=== PATIENT | male | born 1995 | race African-American/Black ===

== ENCOUNTER 2017-09-19 19:59 | Emergency (ER) | payer OTHER ==
--- NOTE | 2017-09-19 20:25 | ER ---
Nurse's Notes [facility] Name: Lavelle Spear Age: 22 yrs Sex: Male : 1995 Arrival Date: 09/19/2017 Time: 20:00 Bed 4 Private MD: Diagnosis: Dislocation of other parts of right shoulder girdle-reduced Presentation: 09/19 20:01 Presenting complaint: Patient states: I WAS DOING PULLUPS ON THE GATE AND MY ARM rv TWISTED WHEN I WAS JUMPING DOWN. Transition of care: patient was not received from another setting of care. Onset of symptoms was September 19, 2017 at 18:00. Risk Assessment: Do you want to hurt yourself or someone else? Patient reports no desire to harm self or others. Initial Sepsis Screen: Does the patient meet any 2 criteria? No. Patient's initial sepsis screen is negative. Does the patient have a suspected source of infection? No. Patient's initial sepsis screen is negative. Care prior to arrival: None. 20:01 Method Of Arrival: Law Enforcement: [place] [employer] rv 20:01 Acuity: ADONIS 3 rv Triage Assessment: 20:03 General: Appears in no apparent distress. uncomfortable, slender, Behavior is calm, rv cooperative, appropriate for age. Pain: Complains of pain in anterior aspect of right shoulder. EENT: No deficits noted. Neuro: Level of Consciousness is awake, alert, obeys commands, Oriented to person, place, time, situation, Appropriate for age. Cardiovascular: No deficits noted. Respiratory: Airway is patent Respiratory effort is even, unlabored, Respiratory pattern is regular, symmetrical. GI: No signs and/or symptoms were reported involving the gastrointestinal system. : No signs and/or symptoms were reported regarding the genitourinary system. Derm: No deficits noted. Musculoskeletal: Bony deformity noted of anterior aspect of right shoulder. Injury Description: Deformity sustained to anterior aspect of right shoulder. Historical: - Allergies: 20:03 No Known Allergies; rv - Home Meds: 20:03 None [Active]; rv - PMHx: 20:03 None; rv - Immunization history:: Adult Immunizations up to date. - Social history:: Smoking status: Patient/guardian denies using tobacco. - Ebola Screening: : Patient negative for fever greater than or equal to 101.5 degrees Fahrenheit, and additional compatible Ebola Virus Disease symptoms Patient denies exposure to infectious person Patient denies travel to an Ebola-affected area in the 21 days before illness onset No symptoms or risks identified at this time. - Family history:: not pertinent. Screenin:06 Abuse screen: Denies threats or abuse. Denies injuries from another. Nutritional rv screening: No deficits noted. Tuberculosis screening: No symptoms or risk factors identified. Fall Risk None identified. Assessment: 20:06 General: SEE TRIAGE NOTE. 22YO BM [facility] INMATE P/W SPONTANEOUS R SHOULDER DEFORMITY WHILE rv WORKING OUT. 20:44 Reassessment: REDUCTION COMPLETED WITHOUT INCIDENT, PT REMAINS NEUROVASCULAR INTACT. bp POST-REDUCTION XRAY PENDING. 21:13 Reassessment: PT D/C IN CUSTODY OF [employer] OFFICERS, DX WITH R SHOULDER DISLOCATION. bp Vital Signs: 20:03 BP 150 / 91; Pulse 63; Resp 16; Temp 98; Pulse Ox 99% ; Weight 72.57 kg; rv 21:14 BP 138 / 89; Pulse 77; Resp 16; Pulse Ox 100% ; bp ED Course: 20:00 Patient arrived in ED. rv 20:01 Ronald Tompkins MD is Attending Physician. katie 20:02 Triage completed. rv 20:03 Arm band placed on. rv 20:06 Patient has correct armband on for positive identification. Bed in low position. Call rv light in reach. Side rails up X2. Adult w/ patient. 20:25 Alejandro Sam MD is Referral Physician. katie 20:30 Assist provider with reduction of right shoulder using traction, Performed by Ronald Tompkins MD Immobilized with sling, Patient tolerated well. 20:42 Chandana Reyes, ARLENE is Primary Nurse. bp 20:43 Sling applied to right arm. bp 20:44 Patient did not have IV access during this emergency room visit. bp 21:11 X-ray completed. Portable x-ray completed in exam room. Patient tolerated procedure la2 well. 21:12 Shoulder Right (2 View) XRAY In Process Unspecified. EDMS Administered Medications: 20:42 Drug: Motrin 600 mg Route: PO; bp 21:18 Follow up: Response: Pain is decreased bp 20:43 Drug: [place] 10 mg-325 mg 1 tabs Route: PO; bp 21:18 Follow up: Response: Pain is decreased bp Outcome: 20:25 Discharge ordered by . katie 21:17 Discharged to Law Enforcement bp 21:17 Condition: stable 21:17 Discharge instructions given to patient, police, Instructed on discharge instructions, follow up and referral plans. medication usage, Demonstrated understanding of instructions, follow-up care, medications, Prescriptions given X 2. 21:19 Patient left the ED. bp Signatures: Dispatcher [employer] EDMS Ronald Tompkins MD MD cha Ardoin, Leslie la2 Chandana Reyes, RN RN bp Arpan Nichols RN RN rv
--- NOTE | 2017-09-19 20:26 | EDPHYS ---
Physician Documentation [facility] Name: Lavelle Spear Age: 22 yrs Sex: Male : 1995 Arrival Date: 09/19/2017 Time: 20:00 Bed 4 Private MD: ED Physician Ronald Tompkins HPI: 09/19 20:13 This 22 yrs old Black Male presents to ER via Law Enforcement with complaints of katie Shoulder Injury. 20:13 The patient or guardian complains of decreased range of motion, deformity, an injury. katie right shoulder. Context: The problem was sustained at home. Onset: The symptoms/episode began/occurred just prior to arrival. Modifying factors: the symptoms are alleviated by remaining still, shoulder immobilizer, The symptoms are aggravated by lifting weight, movement, rotation of arm. Associated signs and symptoms: The patient has no apparent associated signs or symptoms. Severity of symptoms: At their worst the symptoms were moderate, in the emergency department the symptoms are unchanged. Treatment prior to arrival includes: no previous treatment. The patient has not experienced similar symptoms in the past. Historical: - Allergies: 20:03 No Known Allergies; rv - Home Meds: 20:03 None [Active]; rv - PMHx: 20:03 None; rv - Immunization history:: Adult Immunizations up to date. - Social history:: Smoking status: Patient/guardian denies using tobacco. - Ebola Screening: : Patient negative for fever greater than or equal to 101.5 degrees Fahrenheit, and additional compatible Ebola Virus Disease symptoms Patient denies exposure to infectious person Patient denies travel to an Ebola-affected area in the 21 days before illness onset No symptoms or risks identified at this time. - Family history:: not pertinent. ROS: 20:13 Constitutional: Negative for fever, chills, and weight loss, Eyes: Negative for injury, katie pain, redness, and discharge, ENT: Negative for injury, pain, and discharge, Neck: Negative for injury, pain, and swelling, Cardiovascular: Negative for chest pain, palpitations, and edema, Respiratory: Negative for shortness of breath, cough, wheezing, and pleuritic chest pain, Abdomen/GI: Negative for abdominal pain, nausea, vomiting, diarrhea, and constipation, Back: Negative for injury and pain, : Negative for injury, bleeding, discharge, and swelling, Skin: Negative for injury, rash, and discoloration, Neuro: Negative for headache, weakness, numbness, tingling, and seizure, Psych: Negative for depression, anxiety, suicide ideation, homicidal ideation, and hallucinations, Allergy/Immunology: Negative for hives, rash, and allergies, Endocrine: Negative for neck swelling, polydipsia, polyuria, polyphagia, and marked weight changes, Hematologic/Lymphatic: Negative for swollen nodes, abnormal bleeding, and unusual bruising. 20:13 MS/extremity: Positive for injury or acute deformity, decreased range of motion, pain, tenderness, of the right shoulder. Exam: 20:13 Constitutional: This is a well developed, well nourished patient who is awake, alert, katie and in no acute distress. Head/Face: Normocephalic, atraumatic. Eyes: Pupils equal round and reactive to light, extra-ocular motions intact. Lids and lashes normal. Conjunctiva and sclera are non-icteric and not injected. Cornea within normal limits. Periorbital areas with no swelling, redness, or edema. ENT: Nares patent. No nasal discharge, no septal abnormalities noted. Tympanic membranes are normal and external auditory canals are clear. Oropharynx with no redness, swelling, or masses, exudates, or evidence of obstruction, uvula midline. Mucous membranes moist. Neck: Trachea midline, no thyromegaly or masses palpated, and no cervical lymphadenopathy. Supple, full range of motion without nuchal rigidity, or vertebral point tenderness. No Meningismus. Chest/axilla: Normal chest wall appearance and motion. Nontender with no deformity. No lesions are appreciated. Cardiovascular: Regular rate and rhythm with a normal S1 and S2. No gallops, murmurs, or rubs. Normal PMI, no JVD. No pulse deficits. Respiratory: Lungs have equal breath sounds bilaterally, clear to auscultation and percussion. No rales, rhonchi or wheezes noted. No increased work of breathing, no retractions or nasal flaring. Abdomen/GI: Soft, non-tender, with normal bowel sounds. No distension or tympany. No guarding or rebound. No evidence of tenderness throughout. Back: No spinal tenderness. No costovertebral tenderness. Full range of motion. Male : Normal genitalia with no discharge or lesions. Skin: Warm, dry with normal turgor. Normal color with no rashes, no lesions, and no evidence of cellulitis. Neuro: Awake and alert, GCS 15, oriented to person, place, time, and situation. Cranial nerves II-XII grossly intact. Motor strength 5/5 in all extremities. Sensory grossly intact. Cerebellar exam normal. Normal gait. Psych: Awake, alert, with orientation to person, place and time. Behavior, mood, and affect are within normal limits. 20:13 Musculoskeletal/extremity: Extremities: grossly normal except: noted in the anterior aspect of right shoulder and posterior aspect of right shoulder: decreased ROM, ROM: limited active range of motion due to pain, limited passive range of motion due to pain, Circulation is intact in all extremities. Sensation intact. Compartment Syndrome exam of affected extremity: is normal. DVT Exam: no pain, no swelling, no tenderness, negative Homans' sign noted on exam, no appreciated bluish discoloration, no erythema, no increased warmth. Vital Signs: 20:03 BP 150 / 91; Pulse 63; Resp 16; Temp 98; Pulse Ox 99% ; Weight 72.57 kg; rv 21:14 BP 138 / 89; Pulse 77; Resp 16; Pulse Ox 100% ; bp Procedures: 20:20 Reduction: of the right shoulder, using traction, manipulation, Immobilized with sling, [facility] Patient tolerated well. Post reduction film - reveals normal alignment. MDM: 20:01 Patient medically screened. [facility] 20:16 Data reviewed: vital signs, nurses notes, radiologic studies, plain films. [facility] 09/19 20:15 Order name: Shoulder Right (2 View) XRAY [facility] 09/19 20:16 Order name: Sling; Complete Time: 20:35 [facility] 09/19 20:16 Order name: Ice pack; Complete Time: 20:35 [facility] Administered Medications: 20:42 Drug: Motrin 600 mg Route: PO; bp 21:18 Follow up: Response: Pain is decreased bp 20:43 Drug: [place] 10 mg-325 mg 1 tabs Route: PO; bp 21:18 Follow up: Response: Pain is decreased bp Disposition: 09/19/17 20:25 Discharged to Home. Impression: Dislocation of other parts of right shoulder girdle - reduced. - Condition is Stable. - Discharge Instructions: Shoulder Dislocation, Shoulder Immobilizer, Shoulder Pain, Shoulder Dislocation, [id number]. - Prescriptions for Ibuprofen 600 mg Oral Tablet - take 1 tablet by ORAL route every 6 hours As needed take with food; 20 tablet. Tylenol- Codeine #3 300-30 mg Oral Tablet - take 2 tablet by ORAL route every 6 hours As needed; 30 tablet. - Medication Reconciliation Form, Thank You Letter, Antibiotic Education, Prescription Opioid Use form. - Follow up: Private Physician; When: 2 - 3 days; Reason: Recheck today's complaints, Continuance of care, Re-evaluation by your physician. Follow up: Dr. Alejandro Sam; When: 2 - 3 days; Reason: Recheck today's complaints, Re-evaluation by your physician. - Problem is new. - Symptoms have improved. Signatures: Dispatcher [employer] EDMS Ronald Tompkins MD MD cha Peltier, Brian, RN RN Arpan Erickson RN RN rv Corrections: (The following items were deleted from the chart) 21:19 20:25 09/19/2017 20:25 Discharged to Home. Impression: Dislocation of other parts of bp right shoulder girdle - reduced. Condition is Stable. Discharge Instructions: Shoulder Dislocation, Shoulder Immobilizer, Shoulder Pain, Shoulder Dislocation, [id number]. Prescriptions for Ibuprofen 600 mg Oral Tablet - take 1 tablet by ORAL route every 6 hours As needed take with food; 20 tablet, Tylenol-Codeine #3 300-30 mg Oral Tablet - take 2 tablet by ORAL route every 6 hours As needed; 30 tablet. and Forms are Medication Reconciliation Form, Thank You Letter, Antibiotic Education, Prescription Opioid Use. Follow up: Private Physician; When: 2 - 3 days; Reason: Recheck today's complaints, Continuance of care, Re-evaluation by your physician. Follow up: Dr. Alejandro Sam; When: 2 - 3 days; Reason: Recheck today's complaints, Re-evaluation by your physician. Problem is new. Symptoms have improved. katie
[2017-09-19] MEDS ORDERED: HYDROCODONE/APAP 10/325 TAB ONE (20:39)
[2017-09-19] MEDS ORDERED: IBUPROFEN 400 MG TAB ONE (20:39)
--- NOTE | 2017-09-19 21:29 | RAD REPORT ---
EXAM DESCRIPTION: RAD - Shoulder Right 2 View - 09/19/2017 9:11 pm CLINICAL HISTORY: Right shoulder pain FINDINGS: No fracture or dislocation is seen.
== END 2017-09-19 21:19 | disposition home or self-care (01) ==
LOC: ER 19:59
PROC: 0RSJXZZ Reposition Right Shoulder Joint, External Approach (ICD-10-PCS; principal; 2017-09-19)
DX: S43.394A Dislocation of other parts of right shoulder girdle, initial encounter (principal); X50.1XXA Overexertion from prolonged static or awkward postures, initial encounter; Y93.B2 Activity, push-ups, pull-ups, sit-ups; Y92.009 Unspecified place in unspecified non-institutional (private) residence as the place of occurrence of the external cause
CPT/HCPCS: 99284